=== PATIENT | female | born 1955 | race African-American/Black ===

== ENCOUNTER 2019-01-29 22:04 | Emergency (ER) | payer OTHER ==
[~2019-01-29] VITALS: Ht 172.7 cm; Wt 90.9 kg
[~2019-01-29 22:04] MED LIST: AMOX500T2 PO; ASPI-556 PO; CARI350 PO; D-ME118S13 PO; ZOLP10TA7 PO
[2019-01-29] MEDS ORDERED: OxyCODONE HCL/ACETAMINOPHEN 5-325 MG TABLET PO ONE (23:45)
[2019-01-30 01:03] VITALS: BP 138/82
[2019-01-30] MEDS ORDERED: HYDR-4455 PO (11:14)
== END 2019-01-30 02:50 | disposition home or self-care (01) ==
LOC: EMS 22:05
DX: S82.61XA Displaced fracture of lateral malleolus of right fibula, initial encounter for closed fracture (principal); I10 Essential (primary) hypertension; Z86.73 Personal history of transient ischemic attack (TIA), and cerebral infarction without residual deficits; Z90.710 Acquired absence of both cervix and uterus; W18.2XXA Fall in (into) shower or empty bathtub, initial encounter; Y93.89 Activity, other specified; Y92.89 Other specified places as the place of occurrence of the external cause; Y99.8 Other external cause status
CPT/HCPCS: 29515

== ENCOUNTER 2019-01-30 11:02 | Emergency (ER) | payer OTHER ==
[~2019-01-30] VITALS: Ht 172.7 cm; Wt 113.6 kg
[2019-01-30] MEDS ORDERED: HYDR-4455 PO (11:14)
[2019-01-30 11:32] VITALS: BP 137/79
== END 2019-01-30 12:45 | disposition home or self-care (01) ==
LOC: EMS 11:04
DX: S82.61XG Displaced fracture of lateral malleolus of right fibula, subsequent encounter for closed fracture with delayed healing (principal); I10 Essential (primary) hypertension; Z86.73 Personal history of transient ischemic attack (TIA), and cerebral infarction without residual deficits; Z90.710 Acquired absence of both cervix and uterus; W19.XXXD Unspecified fall, subsequent encounter
CPT/HCPCS: 29515

== ENCOUNTER 2020-09-19 11:33 | Emergency (ER) | payer OTHER ==
[~2020-09-19] VITALS: Ht 172.7 cm; Wt 86.4 kg
[~2020-09-19 11:33] MED LIST changes: -AMOX500T2 PO; -ASPI-556 PO; -CARI350 PO; -D-ME118S13 PO; +HYDR-4455 PO; -ZOLP10TA7 PO
[2020-09-19] MEDS ORDERED: htn PO (11:41)
[2020-09-19] MEDS ORDERED: cholesterol PO (11:41)
[2020-09-19] MEDS ORDERED: PROM6.2514 PO (12:44)
[2020-09-19] MEDS ORDERED: ATOR10TA69 PO (12:44)
[2020-09-19] MEDS ORDERED: OXYC-530 PO (12:44)
[2020-09-19] MEDS ORDERED: HYDR-1475 PO (12:44)
[2020-09-19] MEDS ORDERED: AMLO5TAB66 PO (12:44)
[2020-09-19] MEDS ORDERED: GABA-1181 PO (12:44)
[2020-09-19] MEDS ORDERED: BACITRACIN 0.9 GM PACKET OINTMENT TP ONE (12:45)
[2020-09-19 12:52] VITALS: BP 138/82
== END 2020-09-19 12:53 | disposition home or self-care (01) ==
LOC: EDUNIT# 11:33 → EMS 11:37
DX: L03.115 Cellulitis of right lower limb (principal); I10 Essential (primary) hypertension; Z90.710 Acquired absence of both cervix and uterus; Z86.73 Personal history of transient ischemic attack (TIA), and cerebral infarction without residual deficits
CPT/HCPCS: 93971; Z7502; Z7610